=== PATIENT | male | born 1965 | race African-American/Black ===

== ENCOUNTER 2021-11-20 19:18 | Inpatient (IN) | payer MEDICAID ==
[~2021-11-20] VITALS: Ht 170.2 cm; Wt 68.0 kg
[2021-11-20] MEDS ORDERED: ONDANSETRON HCL 4MG/2ML INJ IV STA (19:34)
[2021-11-20] MEDS ORDERED: FOLIC ACID 1 MG, THIAMINE HCL 100 MG, MVI, ADULT NO.1 10 ML in DEXTROSE 5% WATER 1,000 ML IV ONE ×4 (19:45)
[2021-11-20] MEDS ORDERED: MIDAZOLAM HCL 2 MG/2 ML VIAL IV ONE (19:45)
[2021-11-20 20:32] LABS: BASOPHILS % 0.6 % (0.0-2.0); EOSINOPHILS % 0.8 % (0.0-5.0); HEMATOCRIT. 44.4 % (42.0-52.0); LYMPHOCYTES % 24.4 % (20.0-50.0); MEAN CORPUSCULAR HEMOGLOBIN 31.5 pg (28.0-32.0); MEAN CORPUSCULAR VOLUME 92.8 fL (80.0-94.0); MEAN PLATELET VOLUME 9.1 fl (7.4-10.4); MONOCYTES % 9.4 % (2.0-8.0); NEUTROPHILS % 64.8 % (40.0-76.0); PLATELET 94 x1000/uL (130-400); RED BLOOD CELL COUNT 4.78 mill/uL (4.7-6.1); RED CELL DISTRIBUTION WIDTH 14.6 % (11.6-14.6)
[2021-11-20 20:53] LABS: CHLORIDE 96 mEq/L (98-107)
[2021-11-20 21:01] LABS: ETHANOL BLOOD 116 mg/dL
[2021-11-20] MEDS ORDERED: MIDAZOLAM HCL 2 MG/2 ML VIAL IV NR (21:30)
[2021-11-20] MEDS ORDERED: ONDANSETRON HCL 4MG/2ML INJ IV NR (21:30)
[2021-11-20 23:07] LABS: *AMPHETAMINES SCREEN URINE NEGATIVE (NEGATIVE); *BARBITURATES SCREEN URINE NEGATIVE (NEGATIVE); *BENZODIAZEPINES SCREEN URINE NEGATIVE (NEGATIVE); *COCAINE SCREEN URINE NEGATIVE (NEGATIVE); CANNABINOID URINE SCREEN NEGATIVE (NEGATIVE); METHADONE URINE SCREEN NEGATIVE (NEGATIVE); OPIATES URINE SCREEN NEGATIVE (NEGATIVE); PHENCYCLIDINE URINE SCREEN NEGATIVE (NEGATIVE)
[2021-11-21] MEDS ORDERED: TRAZ-252 MT (03:34)
[2021-11-21] MEDS ORDERED: RISP2 MT (03:34)
[2021-11-21 03:38] VITALS: BP 172/85
[2021-11-21] MEDS: SODIUM CHLORIDE 0.9% 1,000 ML IV SCH ×2 (06:29→17:53)
[2021-11-21 08:00] VITALS: BP 142/81
[2021-11-21] MEDS: MULTIVITAMINS,THER W-MINERALS TABLET PO SCH (08:35)
[2021-11-21] MEDS: FOLIC ACID 1MG TABLET PO SCH (08:35)
[2021-11-21] MEDS: THIAMINE HCL 100MG TABLET PO SCH (08:36)
[2021-11-21 12:00] VITALS: BP 144/69
[2021-11-21] MEDS: CHLORDIAZEPOXIDE 25MG CAPSULE PO SCH ×2 (14:34→21:22)
[2021-11-21 15:39] VITALS: BP 134/77
[2021-11-21 17:18] LABS: CHLORIDE 99 mEq/L (98-107)
[2021-11-21 18:09] LABS: BASOPHILS % 0.6 % (0.0-2.0); EOSINOPHILS % 0.9 % (0.0-5.0); HEMATOCRIT. 40.1 % (42.0-52.0); HEMOGLOBIN. 13.7 g/dL (14.0-18.0); LYMPHOCYTES % 18.9 % (20.0-50.0); MEAN CORPUSCULAR HEMOGLOBIN 31.6 pg (28.0-32.0); MEAN CORPUSCULAR VOLUME 92.3 fL (80.0-94.0); MEAN PLATELET VOLUME 10.1 fl (7.4-10.4); MONOCYTES % 9.3 % (2.0-8.0); NEUTROPHILS % 70.3 % (40.0-76.0); PLATELET 69 x1000/uL (130-400); RED BLOOD CELL COUNT 4.35 mill/uL (4.7-6.1); RED CELL DISTRIBUTION WIDTH 14.6 % (11.6-14.6)
[2021-11-21 20:00] VITALS: BP 131/74
[2021-11-21] MEDS ORDERED: RISPERIDONE 1MG TABLET PO SCH (21:00)
[2021-11-21] MEDS: RISPERIDONE 1MG TABLET PO SCH (21:22)
[2021-11-21] MEDS: TRAZODONE HCL 50MG TABLET PO SCH (21:22)
[2021-11-22] VITALS: BP 100/52
[2021-11-22 04:00] VITALS: BP 110/60
[2021-11-22] MEDS: CHLORDIAZEPOXIDE 25MG CAPSULE PO SCH ×3 (05:43→20:32)
[2021-11-22] MEDS: SODIUM CHLORIDE 0.9% 1,000 ML IV SCH ×2 (05:47→20:03)
[2021-11-22 08:00] VITALS: BP 129/85
[2021-11-22] MEDS: MULTIVITAMINS,THER W-MINERALS TABLET PO SCH (09:03)
[2021-11-22] MEDS: RISPERIDONE 1MG TABLET PO SCH ×2 (09:03→20:32)
[2021-11-22] MEDS: FOLIC ACID 1MG TABLET PO SCH (09:03)
[2021-11-22] MEDS: THIAMINE HCL 100MG TABLET PO SCH (09:03)
[2021-11-22] MEDS ORDERED: POTASSIUM CHLORIDE 20MEQ/PACKET PO NR (10:00)
[2021-11-22 12:00] VITALS: BP 121/80
[2021-11-22 16:11] VITALS: BP 149/88
[2021-11-22] MEDS: LORAZEPAM 2MG/ML CPJ IV PRN ×2 (17:15→21:51)
[2021-11-22 20:00] VITALS: BP 152/96
[2021-11-22] MEDS: TRAZODONE HCL 50MG TABLET PO SCH (20:32)
[2021-11-22] MEDS: HALOPERIDOL LACTATE 5MG/ML VIAL IM PRN (23:19)
[2021-11-23] VITALS (8 sets, daily range): BP systolic 106–162; BP diastolic 70–96
[2021-11-23] MEDS: LORAZEPAM 2MG/ML CPJ IV PRN ×4 (02:28→20:27)
[2021-11-23] MEDS: HALOPERIDOL LACTATE 5MG/ML VIAL IM PRN ×2 (03:41→07:55)
[2021-11-23] MEDS: CHLORDIAZEPOXIDE 25MG CAPSULE PO SCH ×3 (05:02→21:02)
[2021-11-23] MEDS: MULTIVITAMINS,THER W-MINERALS TABLET PO SCH (07:55)
[2021-11-23] MEDS: FOLIC ACID 1MG TABLET PO SCH (07:56)
[2021-11-23] MEDS: THIAMINE HCL 100MG TABLET PO SCH (07:56)
[2021-11-23] MEDS: RISPERIDONE 1MG TABLET PO SCH ×2 (07:56→20:28)
[2021-11-23 13:02] LABS: PHOSPHORUS 2.2 mg/dL (2.5-4.9)
[2021-11-23] MEDS: SODIUM CHLORIDE 0.9% 1,000 ML IV SCH ×2 (13:02→18:50)
[2021-11-23] MEDS: TRAZODONE HCL 50MG TABLET PO SCH (20:28)
[2021-11-24] MEDS: LORAZEPAM 2MG/ML CPJ IV PRN (03:11)
[2021-11-24 04:00] VITALS: BP 119/77
[2021-11-24] MEDS: CHLORDIAZEPOXIDE 25MG CAPSULE PO SCH ×3 (05:51→21:01)
[2021-11-24 08:00] VITALS: BP 131/79
[2021-11-24] MEDS: SODIUM CHLORIDE 0.9% 1,000 ML IV SCH ×2 (09:15→21:02)
[2021-11-24] MEDS: FOLIC ACID 1MG TABLET PO SCH (10:16)
[2021-11-24] MEDS: MULTIVITAMINS,THER W-MINERALS TABLET PO SCH (10:16)
[2021-11-24] MEDS: RISPERIDONE 1MG TABLET PO SCH ×2 (10:16→21:01)
[2021-11-24] MEDS: THIAMINE HCL 100MG TABLET PO SCH (10:16)
[2021-11-24] MEDS ORDERED: LORAZEPAM 2MG/ML CPJ IV PRN (10:45)
[2021-11-24 12:00] VITALS: BP 115/75
[2021-11-24] MEDS: LACTULOSE 20G/30ML UDC PO SCH ×2 (13:05→21:01)
[2021-11-24 16:00] VITALS: BP 118/71
[2021-11-24 16:17] LABS: CHLORIDE 117 mEq/L (98-107)
[2021-11-24 16:33] LABS: HDL CHOLESTEROL 73 mg/dL (40-59); LDL CHOLESTEROL 98 mg/dL (5-100)
[2021-11-24 20:00] VITALS: BP 125/83
[2021-11-24] MEDS: TRAZODONE HCL 50MG TABLET PO SCH (21:00)
[2021-11-25] VITALS (7 sets, daily range): BP systolic 104–119; BP diastolic 63–85
[2021-11-25] MEDS: LACTULOSE 20G/30ML UDC PO SCH ×3 (05:07→22:32)
[2021-11-25] MEDS: CHLORDIAZEPOXIDE 25MG CAPSULE PO SCH (05:18)
[2021-11-25 07:01] LABS: BASOPHILS % 0.6 % (0.0-2.0); HEMATOCRIT. 39.9 % (42.0-52.0); HEMOGLOBIN. 13.4 g/dL (14.0-18.0); LYMPHOCYTES % 23.4 % (20.0-50.0); MEAN CORPUSCULAR HEMOGLOBIN 31.8 pg (28.0-32.0); MEAN CORPUSCULAR VOLUME 94.5 fL (80.0-94.0); MEAN PLATELET VOLUME 9.3 fl (7.4-10.4); MONOCYTES % 13.5 % (2.0-8.0); NEUTROPHILS % 58.5 % (40.0-76.0); PLATELET 76 x1000/uL (130-400); RED BLOOD CELL COUNT 4.22 mill/uL (4.7-6.1); RED CELL DISTRIBUTION WIDTH 14.9 % (11.6-14.6)
[2021-11-25 07:13] LABS: CHLORIDE 115 mEq/L (98-107)
[2021-11-25] MEDS: THIAMINE HCL 100MG TABLET PO SCH (09:55)
[2021-11-25] MEDS: FOLIC ACID 1MG TABLET PO SCH (09:59)
[2021-11-25] MEDS: RISPERIDONE 1MG TABLET PO SCH ×2 (09:59→21:12)
[2021-11-25] MEDS: MULTIVITAMINS,THER W-MINERALS TABLET PO SCH (09:59)
[2021-11-25] MEDS: SODIUM CHLORIDE 0.9% 1,000 ML IV SCH (10:08)
[2021-11-25] MEDS ORDERED: POTASSIUM CHLORIDE 20MEQ TABLET SR PO NR (11:00)
[2021-11-25] MEDS: SODIUM CHLORIDE 0.45% 1,000 ML IV SCH ×2 (13:01→22:33)
[2021-11-25] MEDS: FLUOXETINE HCL 10 MG CAPSULE PO SCH (13:01)
[2021-11-26 04:00] VITALS: BP 118/73
[2021-11-26] MEDS: LACTULOSE 20G/30ML UDC PO SCH ×3 (05:17→21:09)
[2021-11-26 07:44] LABS: BASOPHILS % 0.6 % (0.0-2.0); HEMATOCRIT. 37.1 % (42.0-52.0); HEMOGLOBIN. 12.5 g/dL (14.0-18.0); MEAN CORPUSCULAR HEMOGLOBIN 31.8 pg (28.0-32.0); MEAN CORPUSCULAR VOLUME 94.1 fL (80.0-94.0); MEAN PLATELET VOLUME 9.5 fl (7.4-10.4); MONOCYTES % 14.2 % (2.0-8.0); NEUTROPHILS % 54.2 % (40.0-76.0); PLATELET 84 x1000/uL (130-400); RED BLOOD CELL COUNT 3.94 mill/uL (4.7-6.1)
[2021-11-26 08:00] VITALS: BP 122/77
[2021-11-26 08:03] LABS: CHLORIDE 107 mEq/L (98-107)
[2021-11-26] MEDS: THIAMINE HCL 100MG TABLET PO SCH (09:32)
[2021-11-26] MEDS: MULTIVITAMINS,THER W-MINERALS TABLET PO SCH (09:33)
[2021-11-26] MEDS: RISPERIDONE 1MG TABLET PO SCH ×2 (09:33→20:11)
[2021-11-26] MEDS: FLUOXETINE HCL 10 MG CAPSULE PO SCH (09:33)
[2021-11-26] MEDS: FOLIC ACID 1MG TABLET PO SCH (09:33)
[2021-11-26 12:00] VITALS: BP 109/72
[2021-11-26] MEDS: SODIUM CHLORIDE 0.45% 1,000 ML IV SCH (13:18)
[2021-11-26] MEDS: GABAPENTIN 300MG CAPSULE PO SCH ×2 (13:18→21:15)
[2021-11-26 16:00] VITALS: BP 108/72
[2021-11-26 20:00] VITALS: BP 123/80
[2021-11-27] VITALS: BP 120/50
[2021-11-27] MEDS: SODIUM CHLORIDE 0.45% 1,000 ML IV SCH ×2 (00:53→13:45)
[2021-11-27 04:00] VITALS: BP 106/70
[2021-11-27] MEDS: LACTULOSE 20G/30ML UDC PO SCH ×3 (05:12→22:04)
[2021-11-27] MEDS: GABAPENTIN 300MG CAPSULE PO SCH ×3 (05:23→22:04)
[2021-11-27 06:30] LABS: HEMATOCRIT. 37.5 % (42.0-52.0); HEMOGLOBIN. 12.7 g/dL (14.0-18.0); MEAN CORPUSCULAR HEMOGLOBIN 31.9 pg (28.0-32.0); MEAN CORPUSCULAR VOLUME 94.4 fL (80.0-94.0); MEAN PLATELET VOLUME 8.9 fl (7.4-10.4); PLATELET 97 x1000/uL (130-400); RED BLOOD CELL COUNT 3.97 mill/uL (4.7-6.1); RED CELL DISTRIBUTION WIDTH 14.4 % (11.6-14.6)
[2021-11-27 06:57] LABS: CHLORIDE 106 mEq/L (98-107)
[2021-11-27 08:00] VITALS: BP 116/70
[2021-11-27] MEDS: FLUOXETINE HCL 10 MG CAPSULE PO SCH (09:25)
[2021-11-27] MEDS: FOLIC ACID 1MG TABLET PO SCH (09:25)
[2021-11-27] MEDS: THIAMINE HCL 100MG TABLET PO SCH (09:25)
[2021-11-27] MEDS: MULTIVITAMINS,THER W-MINERALS TABLET PO SCH (09:26)
[2021-11-27] MEDS: RISPERIDONE 1MG TABLET PO SCH ×2 (09:26→20:47)
[2021-11-27 12:00] VITALS: BP 114/73
[2021-11-27 14:23] LABS: PLATELET ESTIMATE NORMAL
[2021-11-27 16:00] VITALS: BP 106/79
[2021-11-27] MEDS ORDERED: POTASSIUM CHLORIDE 20MEQ TABLET SR PO NR (18:15)
[2021-11-27 20:00] VITALS: BP 118/78
[2021-11-28] VITALS: BP 121/74
[2021-11-28] MEDS: SODIUM CHLORIDE 0.45% 1,000 ML IV SCH ×2 (01:49→13:24)
[2021-11-28 04:00] VITALS: BP 98/66
[2021-11-28] MEDS: LACTULOSE 20G/30ML UDC PO SCH ×4 (05:17→21:21)
[2021-11-28] MEDS: GABAPENTIN 300MG CAPSULE PO SCH ×5 (05:17→21:22)
[2021-11-28 07:50] VITALS: BP 95/69
[2021-11-28] MEDS: RISPERIDONE 1MG TABLET PO SCH ×2 (08:09→21:14)
[2021-11-28] MEDS: MULTIVITAMINS,THER W-MINERALS TABLET PO SCH (08:09)
[2021-11-28] MEDS: FLUOXETINE HCL 10 MG CAPSULE PO SCH (08:10)
[2021-11-28] MEDS: THIAMINE HCL 100MG TABLET PO SCH (08:10)
[2021-11-28] MEDS: FOLIC ACID 1MG TABLET PO SCH (08:10)
[2021-11-28 12:00] VITALS: BP 99/67
[2021-11-28 15:32] VITALS: BP 102/66
[2021-11-28 20:00] VITALS: BP 121/86
[2021-11-29] VITALS: BP 116/68
[2021-11-29] MEDS: SODIUM CHLORIDE 0.45% 1,000 ML IV SCH ×2 (01:33→13:01)
[2021-11-29 04:00] VITALS: BP 99/57
[2021-11-29] MEDS: GABAPENTIN 300MG CAPSULE PO SCH ×3 (05:15→20:19)
[2021-11-29] MEDS: LACTULOSE 20G/30ML UDC PO SCH ×3 (05:15→20:19)
[2021-11-29 07:38] VITALS: BP 123/74
[2021-11-29] MEDS: MULTIVITAMINS,THER W-MINERALS TABLET PO SCH (08:03)
[2021-11-29] MEDS: FOLIC ACID 1MG TABLET PO SCH (08:03)
[2021-11-29] MEDS: RISPERIDONE 1MG TABLET PO SCH ×2 (08:03→20:18)
[2021-11-29] MEDS: THIAMINE HCL 100MG TABLET PO SCH (08:03)
[2021-11-29] MEDS: FLUOXETINE HCL 10 MG CAPSULE PO SCH (08:03)
[2021-11-29] MEDS ORDERED: POTASSIUM CHLORIDE 20MEQ TABLET SR PO NR (10:00)
[2021-11-29 11:35] VITALS: BP 105/63
[2021-11-29 15:34] VITALS: BP 112/63
[2021-11-30 04:00] VITALS: BP 94/64
[2021-11-30] MEDS: SODIUM CHLORIDE 0.45% 1,000 ML IV SCH ×3 (04:04→17:08)
[2021-11-30] MEDS: LACTULOSE 20G/30ML UDC PO SCH ×3 (05:12→20:55)
[2021-11-30] MEDS: GABAPENTIN 300MG CAPSULE PO SCH ×3 (05:12→20:55)
[2021-11-30 08:00] VITALS: BP 109/71
[2021-11-30] MEDS: THIAMINE HCL 100MG TABLET PO SCH (09:34)
[2021-11-30] MEDS: RISPERIDONE 1MG TABLET PO SCH ×2 (09:34→20:55)
[2021-11-30] MEDS: FOLIC ACID 1MG TABLET PO SCH (09:34)
[2021-11-30] MEDS: MULTIVITAMINS,THER W-MINERALS TABLET PO SCH (09:34)
[2021-11-30] MEDS: FLUOXETINE HCL 10 MG CAPSULE PO SCH (09:34)
[2021-11-30 12:00] VITALS: BP 111/66
[2021-11-30 16:00] VITALS: BP 105/68
[2021-11-30 20:02] VITALS: BP 119/73
[2021-11-30 23:57] VITALS: BP 109/60
[2021-12-01 04:00] VITALS: BP 100/60
[2021-12-01] MEDS: GABAPENTIN 300MG CAPSULE PO SCH ×2 (05:28→14:05)
[2021-12-01] MEDS: LACTULOSE 20G/30ML UDC PO SCH (05:28)
[2021-12-01 08:00] VITALS: BP 116/62
[2021-12-01] MEDS: SODIUM CHLORIDE 0.45% 1,000 ML IV SCH (08:29)
[2021-12-01] MEDS: RISPERIDONE 1MG TABLET PO SCH (08:30)
[2021-12-01] MEDS: MULTIVITAMINS,THER W-MINERALS TABLET PO SCH (08:31)
[2021-12-01] MEDS: FOLIC ACID 1MG TABLET PO SCH (08:31)
[2021-12-01] MEDS: THIAMINE HCL 100MG TABLET PO SCH (08:31)
[2021-12-01] MEDS: FLUOXETINE HCL 10 MG CAPSULE PO SCH (08:31)
[2021-12-01] MEDS ORDERED: LACTULOSE 20G/30ML UDC PO SCH (12:00)
[2021-12-01 12:21] VITALS: BP 104/56
[2021-12-01] MEDS ORDERED: FLUOX10 PO (12:46)
[2021-12-01] MEDS ORDERED: THIA100T72 PO (12:46)
[2021-12-01] MEDS ORDERED: FOLI-43 PO (12:46)
[2021-12-01] MEDS ORDERED: MULT-1146 MT (12:46)
[2021-12-01] MEDS ORDERED: RISP1 PO (12:46)
[2021-12-01] MEDS ORDERED: GABA-532 PO (12:46)
[2021-12-01] MEDS ORDERED: LACT10SO7 PO (12:46)
[2021-12-01 14:30] VITALS: BP 104/56
== END 2021-12-01 16:40 | disposition home or self-care (01) | DRG 775 ==
LOC: ER 19:18 → 8WST 23:38 → EDBEDREQ 23:48 → EDBEDREQTM 23:48 → ENRESERV 11-21 00:26
PROVIDERS: ADMIT Internal Medicine; ATTEND Internal Medicine
DX: F10.229 Alcohol dependence with intoxication, unspecified (principal); G93.41 Metabolic encephalopathy; E87.2 Acidosis; F25.9 Schizoaffective disorder, unspecified; I10 Essential (primary) hypertension; F10.239 Alcohol dependence with withdrawal, unspecified; Z78.1 Physical restraint status; Z79.899 Other long term (current) drug therapy
CPT/HCPCS: 36415; 71045; 80048; 80053; 80061; 80305; 80320; 82140; 83036; 83605; 83735; 84100; 84443; 85025; 93005; 99291; C1893; J1630; J2060; J2250; J2405; J3411; J3490; J7030; J7070; G0480

== ENCOUNTER 2022-01-22 16:46 | Emergency (ER) | payer MEDICAID ==
[~2022-01-22] VITALS: Ht 152.4 cm; Wt 63.0 kg
[~2022-01-22 16:46] MED LIST: FLUOX10 PO; FOLI-43 PO; GABA-532 PO; LACT10SO7 PO; MULT-1146 MT; RISP1 PO; THIA100T72 PO
[2022-01-22] MEDS ORDERED: CHLORDIAZEPOXIDE 25MG CAPSULE PO ONE (18:00)
[2022-01-22] MEDS ORDERED: VISCOUS LIDOCAINE 2% 15 ML UDC PO STA (22:34)
[2022-01-22] MEDS ORDERED: MAGNESIUM/ALUMINUM HYDROXIDE/SIMETHICONE 30ML UDC PO STA (22:34)
[2022-01-22] MEDS ORDERED: ACETAMINOPHEN 325MG TABLET PO STA (22:34)
[2022-01-22] MEDS ORDERED: PANTOPRAZOLE SODIUM 40 MG/VIAL IV STA (22:34)
[2022-01-22 22:45] VITALS: BP 147/74
[2022-01-22] MEDS ORDERED: RISPERIDONE 1MG TABLET PO SCH (22:45)
[2022-01-22 23:33] LABS: BASOPHILS % 0.9 % (0.0-2.0); CHLORIDE 102 mEq/L (98-107); EOSINOPHILS % 3.5 % (0.0-5.0); HEMATOCRIT. 37.6 % (42.0-52.0); HEMOGLOBIN. 12.6 g/dL (14.0-18.0); LYMPHOCYTES % 24.3 % (20.0-50.0); MEAN CORPUSCULAR HEMOGLOBIN 30.8 pg (28.0-32.0); MEAN CORPUSCULAR VOLUME 91.7 fL (80.0-94.0); MEAN PLATELET VOLUME 8.8 fl (7.4-10.4); NEUTROPHILS % 62.3 % (40.0-76.0); PLATELET 174 x1000/uL (130-400); RED CELL DISTRIBUTION WIDTH 14.5 % (11.6-14.6)
[2022-01-22 23:44] LABS: INR 0.9; PROTHROMBIN TIME 10.1 sec (9.6-11.0)
[2022-01-22 23:52] LABS: ETHANOL BLOOD < 10 mg/dL
[2022-01-23 01:12] LABS: CLARITY URINE CLEAR (CLEAR); COLOR URINE YELLOW (YELLOW); KETONES URINE 2+ (NEGATIVE); LEUKOCYTE ESTERASE URINE NEGATIVE (NEGATIVE); NITRITE URINE NEGATIVE (NEGATIVE); OCCULT BLOOD URINE TRACE (NEGATIVE); PH URINE 5.5 (4.5-8.0); PROTEIN URINE NEGATIVE (NEGATIVE); SPECIFIC GRAVITY URINE 1.019 (1.005-1.030); UROBILINOGEN URINE 0.2 E.U./dL (0.2-1.0)
[2022-01-23] MEDS ORDERED: MAG-55 MT (01:16)
[2022-01-23 01:26] LABS: *AMPHETAMINES SCREEN URINE NEGATIVE (NEGATIVE); *BARBITURATES SCREEN URINE NEGATIVE (NEGATIVE); *BENZODIAZEPINES SCREEN URINE PRESUMTIVE POSITIVE (NEGATIVE); *COCAINE SCREEN URINE NEGATIVE (NEGATIVE); CANNABINOID URINE SCREEN NEGATIVE (NEGATIVE); METHADONE URINE SCREEN NEGATIVE (NEGATIVE); OPIATES URINE SCREEN NEGATIVE (NEGATIVE); PHENCYCLIDINE URINE SCREEN NEGATIVE (NEGATIVE)
== END 2022-01-23 05:00 | disposition home or self-care (01) ==
LOC: ER 16:46
DX: K29.70 Gastritis, unspecified, without bleeding (principal); F10.20 Alcohol dependence, uncomplicated; Y90.0 Blood alcohol level of less than 20 mg/100 ml; F20.9 Schizophrenia, unspecified
CPT/HCPCS: 36415; 71045; 76705; 80053; 80305; 80307; 80320; 80329; 81003; 83690; 85025; 85610; 93005; 96374; 99285; C9113; Z7610; G0480